=== PATIENT | male | born 1970 | race Hispanic/Latino ===

== ENCOUNTER 2019-03-07 18:06 | Emergency (ER) | payer OTHER ==
[2019-03-07] MEDS ORDERED: ORPHENADRINE CITRATE 30 MG/ML ML ONE (18:25)
[2019-03-07] MEDS ORDERED: KETOROLAC TROMETHAMINE 30MG/ML ONE (18:25)
== END 2019-03-07 20:03 | disposition home or self-care (01) ==
LOC: EDH 18:06
DX: M62.838 Other muscle spasm (principal)
CPT/HCPCS: 96372 ×2; 99284; J1885; J2360